=== PATIENT | female | born 1975 | race Caucasian/White ===

== ENCOUNTER 2023-08-22 16:27 | Inpatient (IN) | payer OTHER, SELFPAY ==
--- NOTE | ~2023-08-22 | CT_ITS ---
EXAMINATION: CT FACIAL BONES WITH CONTRAST CLINICAL INFORMATION: Possible sinusitis abscess tracking from dental source COMPARISON: None available. TECHNIQUE: Axial images through the facial bones following 85 mL Omnipaque [address] examination was performed using dose optimization techniques as appropriate, variously including the following: *Automated exposure control *Adjustment of mA and/or kV according to patient size (this includes techniques or standardized protocols for targeted exams where dose is matched to indication/reason for exam; i.e. extremities or head) *Use of iterative reconstruction technique DLP: 3 0 or mGy-cm FINDINGS: There is periapical lucency and disruption of the cortex of the left maxillary incisor. There is soft tissue swelling overlying the left side of the face. No Definite fluid collection/abscess not seen. There is periapical lucency and cortical disruption of the most posterior remaining right maxillary molar. There is cystic change in the floor of the left maxillary sinus adjacent to the roots of the most posterior left maxillary molar. This appears fluid-filled. There are inflammatory changes with membranous soft tissue thickening seen in the floor of the bilateral maxillary sinuses right greater than left. Visualized paranasal sinuses, mastoid air cells and middle ears are otherwise clear. Orbits are normal. Visualized intracranial structures are normal. There are no enlarged lymph nodes. Visualized salivary glands are normal. CT/CT facial bones w IV con IMPRESSION: Periapical lucency and cortical disruption surrounding the left maxillary incisor. There is adjacent soft tissue swelling of the left side of the face suggestive of cellulitis. No focal fluid collection/soft tissue abscess is seen. There is also periapical lucency and cortical disruption of the most posterior remaining right maxillary molar into the floor of the right maxillary sinus and fluid-filled cystic change adjacent to the root of the most posterior left maxillary molar. There is bilateral maxillary sinus disease, right greater than left, likely odontogenic in origin.
[2023-08-22 16:51] VITALS: BP 138/94; PULSE 109; RESP 18; TEMP 36.1; O2SAT 100; BMI 29.7
--- NOTE | 2023-08-22 16:53 | ED_ITS ---
HPI - General Adult General Chief complaint: Dental/Oral Stated complaint: ?Dental infection Time Seen by Provider: 08/22/23 18:02 History of Present Illness HPI narrative: 48 y/o F patient; PMH T2DM on Metformin, HTN, HLD; presents from home with concern for dental infection. The patient recently started with left upper incisor pain. She has an appointment scheduled for a root canal on Friday (08/25/2023) and has been on Augmentin. However she spoke with her dentist today who became concerned due to the increased swelling to her face and upper lip so he referred her to the emergency department. The patient denies fever or chills, difficulty speaking or swallowing. Related Data Allergies Allergy/AdvReac Type Severity Reaction Status Date / Time No Known Allergies Allergy Verified 08/22/23 16:53 Review of Systems 2 Review of Systems: Yes all other systems are reviewed and are negative [facility] Past Medical History Attestation statement: The following information was validated with the patient. Source: unable to obtain Social History Social History Alcohol intake: never Smoked in Last 30 Days: No Use of substances other than those prescribed or required for medical reasons: No Advance Directives: No Advance Directives Information Provided: No Do you have a plan to hurt others: No Plan Physical Exam ED Vital Signs: Vital Signs - 24 hr 08/22/23 16:51 08/22/23 18:18 08/22/23 19:30 Temperature 97.0 F 98.6 F 98.2 F Pulse Rate 109 H 104 H 102 H Respiratory Rate 18 16 16 Blood Pressure 138/94 H 130/80 137/83 Pulse Oximetry 100 97 98 Oxygen Delivery Method Room Air Room Air Room Air BMI result Body Mass Index 29.7 Patient is afebrile, tachycardic, mildly hypertensive Const General: cooperative HENTX Other: Swelling to upper gingiva overlying left incisor, swelling and tensing of the skin extending to left upper lip and left-sided face including infra-orbital. No significant overlying erythema or warmth. No tenderness sub-mandibular. No tenderness pre- or post-auricular. Head: Yes atraumatic Eyes General: appearance normal, both eyes and all related structures Neck Neck: Yes normal visual inspection and Yes full ROM Chest Chest palpation & inspection: normal inspection of the chest and normal palpation of entire chest wall Resp Effort & Inspection: normal respiratory effort and able to speak in complete sentences Auscultation: clear to auscultation bilaterally Cardio Rate: tachycardic Rhythm: regular rhythm Peripheral pulses: Peripheral pulses 2+ throughout GI Inspection: Yes normal to inspection Palpation (GI): Soft to palpation, not firm, nontender, no guarding and not rigid Auscultation: normal bowel sounds Course Course Course Narrative: RME performed by Shayy Queen PA-C. Patient is a 48 year old assigned female at presenting to the emergency department with left upper dental pain. Patient states that a few days ago she was told she needs a root canal of a tooth and while waiting to do that, her tooth became much more painful. Patient states that 2 days ago, she was given augmentin for a possible dental infection however, her dentist today recommended she come to the ER because she now has left lower eye swelling. Detailed physical exam and review of systems are deferred to the community facilitator. Labs and imaging ordered. Patient placed back in the waiting room pending room availability and results. Reevaluation(s) Reevaluation #1: Reviewed triage orders. Labs notable for multiple electrolyte abnormalities. No leukocytosis. Anemia with Hgb 8.3. ESR 42. CRP 13.94. Potassium 2.9, repleted with IV. Magnesium 1.2, repleted with IV. LA 4.3. Mild transaminitis. Providing Unasyn and IVF 1L pending CT imaging result. Reevaluation #2: CT with evidence of periapical lucency and cortical disruption surrounding the left maxillary incisor with adjacent soft tissue swelling of the left side of the face suggesting cellulitis without focal fluid collection/soft tissue abscess seen. Plan: Admit to hospitalist for cellulitis requiring IV antibiotics Condition: Stable Medications Administered Generic Name Dose Route Start Last Admin Trade Name Freq PRN Reason Stop Dose Admin Potassium Chloride 10 meq in 100 mls @ 100 mls/hr 08/22/23 19:30 08/22/23 19:42 Potassium Chloride/H20 IV 08/22/23 22:29 100 mls/hr Q1H TABITHA Administration Magnesium Sulfate 2 gm in 50 mls @ 25 mls/hr 08/22/23 19:18 08/22/23 19:31 Magnesium Sulfate/H2o IV 08/22/23 21:17 25 mls/hr ONCE ONE Administration Discontinued Medications Generic Name Dose Route Start Last Admin Trade Name John PRN Reason Stop Dose Admin Ampicillin Sodium/Sulbactam 100 mls @ 200 mls/hr 08/22/23 18:19 08/22/23 19:02 Sodium 3 gm/ Sodium Chloride IV 08/22/23 18:48 Infused ONCE ONE Infusion Sodium Chloride 1,000 mls @ 999 mls/hr 08/22/23 19:30 08/22/23 19:37 Ns IV 08/22/23 20:30 999 mls/hr .Q1H1M TABITHA Administration Iohexol 100 ml 08/22/23 18:34 08/22/23 18:34 Iohexol 350 Mg/Ml 100 Ml Infus..Btl IV 08/22/23 18:35 85 ml ONCE ONE Administration Medical Decision Making Lab Data 08/22/23 17:07 08/22/23 17:07 Labs: Lab Results 08/22/23 08/22/23 08/22/23 Range/Units 17:06 17:07 19:36 WBC 8.1 (4.8-10.8) X10*3/uL RBC 4.32 (4.20-5.50) X10*6/uL Hgb 8.3 L (12.0-16.0) g/dl Hct 27.9 L (37.0-47.0) % MCV 64.6 L (80.0-98.0) fL MCH 19.2 L (27.0-33.0) pg MCHC 29.7 L (31.0-35.0) g/dl RDW 19.6 H (11.0-16.0) % Plt Count 402 H (160-400) X10*3/uL MPV 8.4 L (9.4-12.3) fL Immature Gran % (Auto) 0.6 H (0.0-0.4) % Neut % (Auto) 76.2 H (45-73) % Lymph % (Auto) 13.9 L (20-40) % [place] % (Auto) 7.8 (2-11) % Eos % (Auto) 1.0 (0-4) % Baso % (Auto) 0.5 (0-2) % Lymph # (Auto) 1.1 L (1.2-4.9) X10*3/uL [place] # (Auto) 0.6 (0.1-1.2) X10*3/uL Eos # (Auto) 0.1 (0.0-0.4) X10*3/uL Baso # (Auto) 0.0 (0.0-0.2) X10*3/uL Abs Immat Gran (auto) 0.05 H (0.00-0.03) X10*3/uL Absolute Neuts (auto) 6.1 (2.0-8.3) x10*3/uL Absolute Nucleated RBC 0.000 (0.0-0.012) X10*3/uL Nucleated RBC % (auto) 0.0 (0.0-0.2) /100WBC ESR 42 H (0-20) MM/HR Sodium 140 (135-145) mmol/L Potassium 2.9 L* (3.3-5.1) mmol/L Chloride 96 (96-108) mmol/L Carbon Dioxide 28 (22-29) mmol/L Anion Gap 19 (12-20) BUN 12 (9-16) mg/dL Creatinine 0.73 (0.5-1.4) mg/dL Estim Creat Clear Calc 99.0 Estimated GFR > 60 Random Glucose 206 H (60-115) mg/dL Lactic Acid 4.3 H* (0.5-2.0) mmol/L Lactic Acid F/U @ 2Hr 1.7 (0.5-2.0) mmol/L Calcium 8.5 (8.4-10.2) mg/dL Magnesium 1.2 L* (1.6-2.6) mg/dL Total Bilirubin 0.6 (0.0-1.0) mg/dL AST 90 H (5-31) U/L ALT 90 H (0-31) U/L Alkaline Phosphatase 76 (39-117) U/L C-Reactive Protein 13.94 H (< or = 0.50) mg/dL Total Protein 7.9 (6.5-8.0) g/dL Albumin 4.5 (3.5-5.0) g/dL Radiology Impression Discussion of test interpretation with radiology: I have reviewed the radiologist's reading. Radiologist Impression: EXAMINATION: CT FACIAL BONES WITH CONTRAST CLINICAL INFORMATION: Possible sinusitis abscess tracking from dental source COMPARISON: None available. TECHNIQUE: Axial images through the facial bones following 85 mL Omnipaque [address] examination was performed using dose optimization techniques as appropriate, variously including the following: *Automated exposure control *Adjustment of mA and/or kV according to patient size (this includes techniques or standardized protocols for targeted exams where dose is matched to indication/reason for exam; i.e. extremities or head) *Use of iterative reconstruction technique DLP: 3 0 or mGy-cm FINDINGS: There is periapical lucency and disruption of the cortex of the left maxillary incisor. There is soft tissue swelling overlying the left side of the face. No Definite fluid collection/abscess not seen. There is periapical lucency and cortical disruption of the most posterior remaining right maxillary molar. There is cystic change in the floor of the left maxillary sinus adjacent to the roots of the most posterior left maxillary molar. This appears fluid-filled. There are inflammatory changes with membranous soft tissue thickening seen in the floor of the bilateral maxillary sinuses right greater than left. Visualized paranasal sinuses, mastoid air cells and middle ears are otherwise clear. Orbits are normal. Visualized intracranial structures are normal. There are no enlarged lymph nodes. Visualized salivary glands are normal. CT/CT facial bones w IV con IMPRESSION: Periapical lucency and cortical disruption surrounding the left maxillary incisor. There is adjacent soft tissue swelling of the left side of the face suggestive of cellulitis. No focal fluid collection/soft tissue abscess is seen. There is also periapical lucency and cortical disruption of the most posterior remaining right maxillary molar into the floor of the right maxillary sinus and fluid-filled cystic change adjacent to the root of the most posterior left maxillary molar. There is bilateral maxillary sinus disease, right greater than left, likely odontogenic in origin. Discharge Plan Discharge Clinical Impression: Cellulitis of face, Dental infection Patient Disposition: Admitted As Inpatient Print Language: Polish
[2023-08-22 17:15] LABS: MANUAL DIFF FLAG NO
[2023-08-22 17:19] LABS: Basophils Percent Auto 0.5 % (0-2); Eosinophils Absolute Auto 0.1 X10*3/uL (0.0-0.4); Hematocrit 27.9 % (37.0-47.0); Hemoglobin 8.3 g/dl (12.0-16.0); Imm Gran Abs Auto 0.05 X10*3/uL (0.00-0.03); Imm Gran Pct Auto 0.6 % (0.0-0.4); Lymphocytes Absolute Auto 1.1 X10*3/uL (1.2-4.9); Lymphocytes Percent Auto 13.9 % (20-40); Mean Corpuscular HGB Conc 29.7 g/dl (31.0-35.0); Mean Corpuscular Hemoglobin 19.2 pg (27.0-33.0); Mean Platelet Volume 8.4 fL (9.4-12.3); Monocytes Absolute Auto 0.6 X10*3/uL (0.1-1.2); Monocytes Percent Auto 7.8 % (2-11); Neutrophils Absolute Auto 6.1 x10*3/uL (2.0-8.3); Neutrophils Percent Auto 76.2 % (45-73); Platelet Count 402 X10*3/uL (160-400); Red Blood Count 4.32 X10*6/uL (4.20-5.50); Red Cell Distribution Width 19.6 % (11.0-16.0); White Blood Count 8.1 X10*3/uL (4.8-10.8)
[2023-08-22 17:31] LABS: Mean Corpuscular Volume 64.6 fL (80.0-98.0)
[2023-08-22 17:40] LABS: Alanine Aminotransferase 90 U/L (0-31); Albumin Level 4.5 g/dL (3.5-5.0); Alkaline Phosphatase 76 U/L (39-117); Anion Gap 19 (12-20); Aspartate Amino Transferase 90 U/L (5-31); Bilirubin Total 0.6 mg/dL (0.0-1.0); Blood Urea Nitrogen 12 mg/dL (9-16); C Reactive Protein 13.94 mg/dL (< or = 0.50); Calcium 8.5 mg/dL (8.4-10.2); Carbon Dioxide 28 mmol/L (22-29); Chloride 96 mmol/L (96-108); Estimated Glomerular Filt Rate > 60; Glucose Random 206 mg/dL (60-115); Magnesium 1.2 mg/dL (1.6-2.6); Potassium 2.9 mmol/L (3.3-5.1); Sodium 140 mmol/L (135-145); Total Protein 7.9 g/dL (6.5-8.0)
[2023-08-22 17:41] LABS: Lactic Acid 4.3 mmol/L (0.5-2.0)
[2023-08-22 18:08] LABS: Erythrocyte Sedimentation Rate 42 MM/HR (0-20)
[2023-08-22 18:18] VITALS: BP 130/80; PULSE 104; RESP 16; TEMP 37; O2SAT 97
[2023-08-22] MEDS: Ampicillin Sodium/Sulbactam Na 3 GM in 0.9 % Sodium Chloride 100 ML IV (18:32)
[2023-08-22] MEDS: iohexoL 350 MG/ML 100 ML INFUS..BTL IV (18:34)
[2023-08-22 19:12] LABS: Reflex Lactate? Lactic Acid Added
[2023-08-22 19:30] VITALS: BP 137/83; PULSE 102; RESP 16; TEMP 36.8; O2SAT 98
[2023-08-22] MEDS: Magnesium Sulfate/H2O 2 GM/50 ML PIGGYBACK IV ×2 (19:31→21:27)
[2023-08-22] MEDS: 0.9 % Sodium Chloride 1,000 ML 999 ML IV ×2 (19:37→20:50)
[2023-08-22] MEDS: Potassium Chloride/H20 10 MEQ/100 ML PIGGYBACK 100 MEQ IV ×3 (19:42→22:01)
--- NOTE | 2023-08-22 19:50 | PC.NURSE ---
this rn assumed care of pt. pt resting in stretcher, no acute distress noted. pt medicated per mar at this time, placed on tele 96-99bpm. second IV access established, 20G right AC.
[2023-08-22 19:57] LABS: ~Lactic Acid-LAB USE ONLY 1.7 mmol/L (0.5-2.0)
[2023-08-22] MEDS: Acetaminophen 325 MG TABLET 650 MG PO (20:49)
[2023-08-22 20:50] VITALS: RESP 20
[2023-08-22] MEDS: HYDROmorphone HCl 0.5 MG/0.5 ML SYRINGE IVPUSH (20:50)
[2023-08-22 20:52] LABS: Lipase 49 U/L (8-78)
--- NOTE | 2023-08-22 20:56 | PC.NURSE ---
prt medicated per mar for 10/10 tooth pain, pt tolerated well.
--- NOTE | 2023-08-22 21:32 | PC.NURSE ---
at bedside discussing pt care.
[2023-08-22 21:51] VITALS: BP 131/76; PULSE 98; RESP 16; TEMP 36.7; O2SAT 97
--- NOTE | 2023-08-22 22:05 | PC.NURSE ---
delay in lactated ringers due to no compatibility with magnesium and potassium.
--- NOTE | 2023-08-22 22:24 | P.HPHOSP_ITS ---
History of Present Illness Date of Service: 08/22/23 Attending physician on admission: Johnny Fagan Chief Complaint: Facial swelling Jamila Marquez is a 40 years old woman with past medical history significant for essential hypertension, type 2 diabetes mellitus on metformin and hyperlipidemia presents to the emergency department complaining of left-sided facial swelling associated to tooth pain since Friday. She denied any associated fever. Denies headache, acute visual disturbances or dizziness. Denied any cardiopulmonary, gastrointestinal or genitourinary symptoms. She is scheduled for a root canal on Friday for this issue. She has been taking a course of Augmentin over the last several days and has noted minimal improvement of swelling. He lady, she was found to have tachycardia. There is no tachypnea, hypotension or fever. Oxygen saturation is normal on room air. Blood workup showed no leukocytosis. Blood workup was remarkable for hypokalemia, 2.9 and hypomagnesemia, 1.2. There are no other electrolyte imbalances. CO2 is normal. Glucose is 206. Lactic acid is 4.3. Transaminases are elevated. Bilirubin, lipase and alk-phos are normal. Facial CT with IV contrast showed periapical lucency and cortical disruption surrounding the left maxillary incisor suggesting cellulitis. It did not show of focal fluid collection/abscess. There is bilateral maxillary sinus disease likely odontogenic in origin. ED tx: Magnesium 2 g IV, acetaminophen 650 mg PO, NS bolus 2 L bolus, potassium chloride IV, Unasyn 3 g IV, Dilaudid 0.5 mg IV. Review of Systems 2 Review of Systems: All 12 systems were reviewed and normal except as noted in HPI. [facility] Social History Alcohol intake: never Smoked in Last 30 Days: No Use of substances other than those prescribed or required for medical reasons: No Advance Directives: No Advance Directives Information Provided: No Do you have a plan to hurt others: No Plan Meds Allergies Allergy/AdvReac Type Severity Reaction Status Date / Time No Known Allergies Allergy Verified 08/22/23 16:53 Active Medications: Current Medications Acetaminophen (Acetaminophen 325 Mg Tablet) 975 mg PO Q6H PRN PRN Reason: mild pain, fever or headache Amlodipine Besylate (Amlodipine Besylate 10 Mg Tablet) 10 mg PO DAILY TABITHA; Protocol Atorvastatin Calcium (Atorvastatin Calcium 80 Mg Tablet) 80 mg PO DAILY [facility] Glucose (Glucose Gel 15 Gm Gel..Gram.) 15 gm PO Q15M PRN; Protocol PRN Reason: per Hypoglycemia Standing Ord. Hydrochlorothiazide (Hydrochlorothiazide 25 Mg Tablet) 25 mg PO DAILY [facility]; Protocol Potassium Chloride (Potassium Chloride/H20) 10 meq in 100 mls @ 100 mls/hr IV Q1H TABITHA Stop: 08/22/23 22:29 Last Admin: 08/22/23 22:01 Dose: 100 mls/hr Lactated Ringer's (Lr) 1,000 mls @ 100 mls/hr IVCONT .Q10H [facility] Stop: 08/23/23 09:59 Ampicillin Sodium/Sulbactam (Sodium 1.5 gm/ Sodium Chloride) 100 mls @ 200 mls/hr IV Q6H [facility] Dextrose (D10) 250 mls @ 750 mls/hr IV Q15M PRN; Protocol PRN Reason: per Hypoglycemia Standing Ord. Insulin Human Lispro (Insulin Lispro 100 Unit/Ml 3 Ml Vial) 0 unit SUBCUT QIDACHS [facility]; Protocol Sertraline HCl (Sertraline Hcl 100 Mg Tablet) 100 mg PO DAILY [facility] Sodium Chloride (0.9 % Sodium Chloride Flush 3 Ml Syringe) 3 ml IVFLUSH QSHIFT [facility] Home Medications ?Medication ?Instructions ?Recorded ?Confirmed ?Last Taken ?Type albuterol sulfate 90 mcg/actuation 2 puff inhalation Q4H PRN wheezing 08/22/23 Unknown History aerosol inhaler amlodipine 10 mg tablet 10 mg PO DAILY 08/22/23 08/22/23 Unknown History amoxicillin 500 mg capsule 500 mg PO Q8H 08/22/23 08/22/23 Unknown History atorvastatin 80 mg tablet 80 mg PO DAILY 08/22/23 08/22/23 Unknown History cholecalciferol (vitamin D3) 50 50 mcg PO DAILY 08/22/23 08/22/23 Unknown History mcg (2,000 unit) tablet (Vitamin D3) hydrochlorothiazide 25 mg tablet 25 mg PO DAILY 08/22/23 Unknown History ipratropium 0.5 mg-albuterol 3 mg 3 ml inhalation Q6H PRN Shortness 08/22/23 08/22/23 08/21/23 History (2.5 mg base)/3 mL nebulization Of Breath Or Wheezing soln metformin 500 mg tablet,extended 1,000 mg PO BID 08/22/23 08/22/23 Unknown History release 24 hr omega 9-mju-[id number]-fish oil 60 mg-90 1 cap PO DAILY 08/22/23 08/22/23 Unknown History mg-500 mg capsule (Fish Oil) sertraline 100 mg tablet 100 mg PO DAILY 08/22/23 08/22/23 Unknown History Physical Exam 2 Vital Signs and Narrative: Vital Signs: Last Vital Signs Temp 98.1 F 08/22/23 21:51 Pulse 98 08/22/23 21:51 Resp 16 08/22/23 21:51 BP 131/76 08/22/23 21:51 Pulse Ox 97 08/22/23 21:51 O2 Del Method Room Air 08/22/23 21:51 BMI result Body Mass Index 29.7 Constitutional - Awake and Alert, No apparent distress. Afebrile HEENT: There is no periorbital edema. Extraocular movements are intact. Left cheek/upper lip swelling + tenderness. No erythema. No nasal discharges. Left upper teeth with a gross evidence of erythema or swelling however tenderness to palpation. Heart - RRR. No murmurs Lungs - Normal lung expansion, Normal respiratory effort, No respiratory distress, CTA bilaterally Abdomen - No tenderness Extremities - No calf tenderness bilaterally, no swelling Musculoskeletal - Normal inspection, normal ROM Skin - Warm/Dry Neurological - Alert & oriented x3. No focal weakness Psychological - Appropriate affect Results Labs 08/22/23 17:07 08/22/23 17:07 Labs: Laboratory Results - last 24 hr 08/22/23 08/22/23 08/22/23 17:06 17:07 19:36 MCV 64.6 L MCH 19.2 L MCHC 29.7 L RDW 19.6 H Plt Count 402 H MPV 8.4 L Immature Gran % (Auto) 0.6 H Neut % (Auto) 76.2 H Lymph % (Auto) 13.9 L [place] % (Auto) 7.8 Eos % (Auto) 1.0 Baso % (Auto) 0.5 Lymph # (Auto) 1.1 L [place] # (Auto) 0.6 Eos # (Auto) 0.1 Baso # (Auto) 0.0 Abs Immat Gran (auto) 0.05 H Absolute Neuts (auto) 6.1 Absolute Nucleated RBC 0.000 Nucleated RBC % (auto) 0.0 ESR 42 H Anion Gap 19 Estim Creat Clear Calc 99.0 Estimated GFR > 60 Random Glucose 206 H Lactic Acid 4.3 H* Lactic Acid F/U @ 2Hr 1.7 Calcium 8.5 Magnesium 1.2 L* Total Bilirubin 0.6 AST 90 H ALT 90 H Alkaline Phosphatase 76 C-Reactive Protein 13.94 H Total Protein 7.9 Albumin 4.5 Lipase 49 Imaging Radiologist's Impressions: Impressions Face CT 08/22/23 18:33 IMPRESSION: Periapical lucency and cortical disruption surrounding the left maxillary incisor. There is adjacent soft tissue swelling of the left side of the face suggestive of cellulitis. No focal fluid collection/soft tissue abscess is seen. There is also periapical lucency and cortical disruption of the most posterior remaining right maxillary molar into the floor of the right maxillary sinus and fluid-filled cystic change adjacent to the root of the most posterior left maxillary molar. There is bilateral maxillary sinus disease, right greater than left, likely odontogenic in origin. Assessment and Plan (1) Dental infection: Status: Acute (2) Cellulitis of face: Status: Acute Plan Jamila Marquez is a 40 years old woman admitted with: * Facial cellulitis with odontogenic infection. No SIRS criteria: Only tachycardia. Continue empiric IV antibiotic therapy with Unasyn. Pain control on anti-inflammatory therapy with NSAIDs. * Acute lactic acidosis, resolved. Likely secondary to metformin. Hold metformin. * Electrolyte imbalances: hypomagnesemia and hypokalemia. Likely secondary to hydrochlorothiazide. Hold hydrochlorothiazide. Continue to monitor electrolytes. * Essential hypertension. Continue amlodipine. Hydrochlorothiazide on hold due to hypokalemia and hypomagnesemia. * Hyperlipidemia. Continue statin. * Type 2 diabetes mellitus. Metformin on hold due to lactic acidosis + recent administration of IV contrast. Blood glucose monitoring before meals at bedtime. Blood glucose control with insulin sliding scale for now. Diabetic diet. Code status: Full DVT prophylaxis: Low risk. Early ambulation. Patient will need hospitalization for at least 2 midnights for facial cellulitis secondary to odontogenic infection treatment the setting of immunocompromised state (diabetes mellitus) and no significant improvement of symptoms with oral antibiotics. Quality Stroke Does the patient have a stroke diagnosis?: No VTE Prior VTE?: No VTE Risk Level:: Medical - low VTE Device Contraindication: Treatment Not Indicated VTE Drug Contraindication: Treatment Not Indicated
--- NOTE | 2023-08-22 22:35 | PHA.MEDREC ---
Pharmacy Consult ? Medication Reconciliation Pharmacy has completed the medication reconciliation with patient and at bedside, pt had list from [facility] and confirmed all meds and vitamin D. Provider added amoxicillin 500, and used source as patient although patient did not report this to me.
[2023-08-22 22:36] LABS: Glucose, Whole Blood 136 mg/dL (60-115)
[2023-08-22] MEDS: Lactated Ringers 1,000 ML 100 ML IVCONT (23:15)
[2023-08-22 23:21] LABS: Anion Gap 15 (12-20); Blood Urea Nitrogen 9 mg/dL (9-16); Calcium 7.1 mg/dL (8.4-10.2); Carbon Dioxide 25 mmol/L (22-29); Chloride 102 mmol/L (96-108); Estimated Glomerular Filt Rate > 60; Glucose Random 153 mg/dL (60-115); Magnesium 2.1 mg/dL (1.6-2.6); Potassium 2.7 mmol/L (3.3-5.1); Sodium 139 mmol/L (135-145)
[2023-08-22] MEDS: Potassium Chloride Packet 20 MEQ PACKET 40 MEQ PO (23:34)
[2023-08-23] VITALS (8 sets, daily range): BP systolic 125–168; BP diastolic 69–93; PULSE 74–110; RESP 15–20; TEMP 36.1–38.2; O2SAT 94–98; BMI 29.7
--- NOTE | 2023-08-23 00:28 | MHC.EDTECH ---
0000 ROUNDING DONE ,VITALS TAKEN ,PT WALK TO BATHROOM INDEPENDENTLY ,VOID AND BACK TO BED ,CALL PATRICK WITHIN PATIENT REACH .
[2023-08-23] MEDS: Ampicillin Sodium/Sulbactam Na 1.5 GM in 0.9 % Sodium Chloride 100 ML IV ×4 (00:39→19:40)
[2023-08-23] MEDS: oxyCODONE HCl Immed Release 5 MG TABLET PO ×4 (02:17→16:41)
[2023-08-23 05:06] LABS: MANUAL DIFF FLAG NO
[2023-08-23 05:07] LABS: Basophils Percent Auto 0.5 % (0-2); Eosinophils Absolute Auto 0.1 X10*3/uL (0.0-0.4); Eosinophils Percent Auto 1.7 % (0-4); Hematocrit 24.4 % (37.0-47.0); Hemoglobin 7.2 g/dl (12.0-16.0); Imm Gran Abs Auto 0.03 X10*3/uL (0.00-0.03); Imm Gran Pct Auto 0.5 % (0.0-0.4); Lymphocytes Absolute Auto 1.4 X10*3/uL (1.2-4.9); Lymphocytes Percent Auto 20.9 % (20-40); Mean Corpuscular HGB Conc 29.5 g/dl (31.0-35.0); Mean Corpuscular Hemoglobin 18.8 pg (27.0-33.0); Mean Platelet Volume 8.1 fL (9.4-12.3); Monocytes Absolute Auto 0.6 X10*3/uL (0.1-1.2); Monocytes Percent Auto 8.9 % (2-11); Neutrophils Absolute Auto 4.5 x10*3/uL (2.0-8.3); Neutrophils Percent Auto 67.5 % (45-73); Platelet Count 325 X10*3/uL (160-400); Red Blood Count 3.83 X10*6/uL (4.20-5.50); Red Cell Distribution Width 19.6 % (11.0-16.0); White Blood Count 6.6 X10*3/uL (4.8-10.8)
[2023-08-23 05:08] LABS: Mean Corpuscular Volume 63.7 fL (80.0-98.0)
[2023-08-23] MEDS: Acetaminophen 325 MG TABLET 975 MG PO ×2 (06:17→12:29)
--- NOTE | 2023-08-23 06:18 | PC.NURSE ---
pt noted to have slight high temp, pt medicated with Tylenol per jun.
[2023-08-23] MEDS: Insulin Lispro 100 UNIT/ML 3 ML VIAL SUBCUT ×4 (08:26→20:55)
[2023-08-23 08:28] LABS: Glucose, Whole Blood 166 mg/dL (60-115)
[2023-08-23 08:31] LABS: Estimated Average Glucose 174 mg/dL; Hemoglobin A1c % 7.7 % (<6.0)
[2023-08-23 08:33] LABS: Iron 26 mcg/dL (30-160); Percent Iron Saturation 8 % (15-50); Total Iron Binding Capacity 325 mcg/dL (228-428); Unsaturated Iron Binding 299 ug/dL
--- NOTE | 2023-08-23 09:03 | PC.NURSE ---
PT TRANSFERRED FROM MAIN ED TO OVERFLOW BED 6 VIA STRETCHER. RN TO RN REPORT RECEIVED.
--- NOTE | 2023-08-23 09:15 | PC.NURSE ---
PT IS A/O X 4 NO SOB/ROSSANA NOTED SPEAKS IN FULL SENTENCES. 3/10 FACIAL PAIN/SWELLING NOTED. PT AWARE OF PLAN OF CARE. WILL CONTINUE TO MONITOR.
[2023-08-23] MEDS: Cholecalciferol (Vitamin D3) 25 MCG TABLET 50 MCG PO (09:32)
[2023-08-23] MEDS: Atorvastatin Calcium 80 MG TABLET PO (09:32)
[2023-08-23] MEDS: amLODIPine Besylate 10 MG TABLET PO (09:32)
[2023-08-23] MEDS: Potassium Chloride Packet 20 MEQ PACKET 40 MEQ PO ×2 (09:33→20:55)
[2023-08-23] MEDS: Lactated Ringers 1,000 ML 100 ML IVCONT (09:51)
[2023-08-23] MEDS: Sertraline HCL 100 MG TABLET PO (09:51)
[2023-08-23 11:53] LABS: Glucose, Whole Blood 192 mg/dL (60-115)
--- NOTE | 2023-08-23 12:11 | HO.PM.IMPN ---
Subjective Subjective Date of Service: 08/23/23 Interval History: fever of 100.7 this AM facial pain and swelling somewhat improved has dental appt 08/27/23 Review of Systems Review of Systems: Yes all other systems are reviewed and are negative Physical Exam Vital Signs: Vital Signs: Last Vital Signs Temp 98.7 F 08/23/23 09:22 Pulse 92 08/23/23 09:22 Resp 17 08/23/23 09:22 BP 128/84 08/23/23 09:22 Pulse Ox 94 08/23/23 09:22 O2 Del Method Room Air 08/23/23 09:22 BMI result Body Mass Index 29.7 Gen: in no acute distress HEENT: sclera anicteric, EOMI, L maxillary swelling/induration without fluctuance Neck: supple Lungs: clear to auscultation bilaterally Heart: regular rate and rhythm, no murmurs Abd: soft, non-tender, non-distended Ext: no edema Skin: warm/well-perfused Neuro: alert and oriented x3, CN2-12 intact Psych: appropriate affect Objective Data Active Medications Acetaminophen (Acetaminophen 325 Mg Tablet) 975 mg PO Q6H PRN PRN Reason: mild pain, fever or headache Last Admin: 08/23/23 06:17 Dose: 975 mg Documented By: ALISE Albuterol Sulfate (Albuterol Sulfate 90 Mcg 8 Gm Inhaler) 2 puff INHALE Q4H PRN PRN Reason: wheezing Albuterol/Ipratropium (Albuterol/Iprat 2.5/0.5mg 3 Ml Ampul.Neb) 3 ml INHALE Q6H PRN PRN Reason: Shortness Of Breath Or Wheezing Amlodipine Besylate (Amlodipine Besylate 10 Mg Tablet) 10 mg PO DAILY [facility]; Protocol Last Admin: 08/23/23 09:32 Dose: 10 mg Documented By: JUANITA Atorvastatin Calcium (Atorvastatin Calcium 80 Mg Tablet) 80 mg PO DAILY [facility] Last Admin: 08/23/23 09:32 Dose: 80 mg Documented By: JUANITA Glucose (Glucose Gel 15 Gm Gel..Gram.) 15 gm PO Q15M PRN; Protocol PRN Reason: per Hypoglycemia Standing Ord. Ampicillin Sodium/Sulbactam (Sodium 1.5 gm/ Sodium Chloride) 100 mls @ 200 mls/hr IV Q6H [facility] Last Infusion: 08/23/23 11:27 Dose: Infused Documented By: JUANITA Dextrose (D10) 250 mls @ 750 mls/hr IV Q15M PRN; Protocol PRN Reason: per Hypoglycemia Standing Ord. Ibuprofen (Ibuprofen 400 Mg Tablet) 400 mg PO Q6H PRN PRN Reason: Pain, Moderate(Pain Scale 4-6) Insulin Human Lispro (Insulin Lispro 100 Unit/Ml 3 Ml Vial) 0 unit SUBCUT QIDACHS [facility]; Protocol Last Admin: 08/23/23 08:26 Dose: 1 unit Documented By: CANELO Oxycodone HCl (Oxycodone Hcl Immed Release 5 Mg Tablet) 5 mg PO Q3H PRN PRN Reason: Pain, Severe (Pain Scale 7-10) Last Admin: 08/23/23 05:48 Dose: 5 mg Documented By: ALISE Potassium Chloride (Potassium Chloride Packet 20 Meq Packet) 40 meq PO BID [facility] Stop: 08/23/23 21:01 Last Admin: 08/23/23 09:33 Dose: 40 meq Documented By: JUANITA Sertraline HCl (Sertraline Hcl 100 Mg Tablet) 100 mg PO DAILY [facility] Last Admin: 08/23/23 09:51 Dose: 100 mg Documented By: JUANITA Sodium Chloride (0.9 % Sodium Chloride Flush 3 Ml Syringe) 3 ml IVFLUSH QSHIFT [facility] Last Admin: 08/23/23 08:29 Dose: Not Given Documented By: CANELO Non-Admin Reason: IV Running Vitamin D (Cholecalciferol (Vitamin D3) 25 Mcg Tablet) 50 mcg PO DAILY [facility] Last Admin: 08/23/23 09:32 Dose: 50 mcg Documented By: JUANITA Labs 08/23/23 05:02 08/22/23 23:00 Labs: Laboratory Results - last 24 hr 08/22/23 08/22/23 08/22/23 17:06 17:07 19:36 MCV 64.6 L MCH 19.2 L MCHC 29.7 L RDW 19.6 H Plt Count 402 H MPV 8.4 L Immature Gran % (Auto) 0.6 H Neut % (Auto) 76.2 H Lymph % (Auto) 13.9 L [place] % (Auto) 7.8 Eos % (Auto) 1.0 Baso % (Auto) 0.5 Lymph # (Auto) 1.1 L [place] # (Auto) 0.6 Eos # (Auto) 0.1 Baso # (Auto) 0.0 Abs Immat Gran (auto) 0.05 H Absolute Neuts (auto) 6.1 Absolute Nucleated RBC 0.000 Nucleated RBC % (auto) 0.0 ESR 42 H Anion Gap 19 Estim Creat Clear Calc 99.0 Estimated GFR > 60 POC Glucose Random Glucose 206 H Estimat Average Glucose Hemoglobin A1c % Lactic Acid 4.3 H* Lactic Acid F/U @ 2Hr 1.7 Calcium 8.5 Magnesium 1.2 L* Iron TIBC % Saturation Unsat Iron Binding Total Bilirubin 0.6 AST 90 H ALT 90 H Alkaline Phosphatase 76 C-Reactive Protein 13.94 H Total Protein 7.9 Albumin 4.5 Lipase 49 08/22/23 08/22/23 08/23/23 22:32 23:00 05:02 MCV 63.7 L MCH 18.8 L MCHC 29.5 L RDW 19.6 H Plt Count 325 MPV 8.1 L Immature Gran % (Auto) 0.5 H Neut % (Auto) 67.5 Lymph % (Auto) 20.9 [place] % (Auto) 8.9 Eos % (Auto) 1.7 Baso % (Auto) 0.5 Lymph # (Auto) 1.4 [place] # (Auto) 0.6 Eos # (Auto) 0.1 Baso # (Auto) 0.0 Abs Immat Gran (auto) 0.03 Absolute Neuts (auto) 4.5 Absolute Nucleated RBC 0.000 Nucleated RBC % (auto) 0.0 ESR Anion Gap 15 Estim Creat Clear Calc 113.0 Estimated GFR > 60 POC Glucose 136 H Random Glucose 153 H Estimat Average Glucose 174 Hemoglobin A1c % 7.7 H Lactic Acid Lactic Acid F/U @ 2Hr Calcium 7.1 L D Magnesium 2.1 Iron 26 L TIBC 325 % Saturation 8 L Unsat Iron Binding 299 Total Bilirubin AST ALT Alkaline Phosphatase C-Reactive Protein Total Protein Albumin Lipase 08/23/23 08/23/23 08:24 11:48 MCV MCH MCHC RDW Plt Count MPV Immature Gran % (Auto) Neut % (Auto) Lymph % (Auto) [place] % (Auto) Eos % (Auto) Baso % (Auto) Lymph # (Auto) [place] # (Auto) Eos # (Auto) Baso # (Auto) Abs Immat Gran (auto) Absolute Neuts (auto) Absolute Nucleated RBC Nucleated RBC % (auto) ESR Anion Gap Estim Creat Clear Calc Estimated GFR POC Glucose 166 H 192 H Random Glucose Estimat Average Glucose Hemoglobin A1c % Lactic Acid Lactic Acid F/U @ 2Hr Calcium Magnesium Iron TIBC % Saturation Unsat Iron Binding Total Bilirubin AST ALT Alkaline Phosphatase C-Reactive Protein Total Protein Albumin Lipase Impressions Face CT 08/22/23 18:33 IMPRESSION: Periapical lucency and cortical disruption surrounding the left maxillary incisor. There is adjacent soft tissue swelling of the left side of the face suggestive of cellulitis. No focal fluid collection/soft tissue abscess is seen. There is also periapical lucency and cortical disruption of the most posterior remaining right maxillary molar into the floor of the right maxillary sinus and fluid-filled cystic change adjacent to the root of the most posterior left maxillary molar. There is bilateral maxillary sinus disease, right greater than left, likely odontogenic in origin. Assessment and Plan (1) Dental infection: Status: Acute (2) Cellulitis of face: Status: Acute Plan d2 40yo F with DM2, HLD, HTN presenting with facial cellulitis associated with odontogenic infection; no abscess to drain facial celulitis due to odontogenic infection - Continue ampicillin-sulbactam started . Eventually will go home on amox/clav and then see dentist 08/26/23 for source control.= hypoMg - repleted hypoK - replete; recheck level in AM; d/c HCTZ KARMA - replete PO when bacterial infection controlled lactic acidosis - due to MTF; resolved HTN - amlodipine; d/c'ed HCTZ HLD - statin DM2 - A1c 7.7. Eliseo-dose lispro VTE ppx - SCDs dispo - eventually home In my clinical judgment, the patient requires continued inpatient hospitalization for the following reasons: IV ABX Total time managing care of this patient today: 35 minutes. Quality Stroke Does the patient have a stroke diagnosis?: No VTE Prior VTE?: No VTE Risk Level:: Medical - low VTE Device Contraindication: Treatment Not Indicated VTE Drug Contraindication: Treatment Not Indicated
--- NOTE | 2023-08-23 14:58 | MHC.CM.PN ---
EMR REVIEWED, CM MET W/PT WHO REPORTS SHE LIVES W/, 16YO [employer] AND 7YO DTR, PT FULLY INDEP, NO DME/SERVICES, WORKS/DRIVES, GOAL FOR DC IS HOME SELF CARE AND PT WILL LIKELY DC TOMORROW 08/23. PT VERIFIES PCP ON FILE IS CORRECT AND HCP IS ROGELIO URBAN, COPY REQUESTED
[2023-08-23] MEDS: 0.9 % Sodium Chloride Flush 3 ML SYRINGE IVFLUSH ×2 (15:35→19:44)
[2023-08-23 16:48] LABS: Glucose, Whole Blood 181 mg/dL (60-115)
[2023-08-23] MEDS: Ibuprofen 400 MG TABLET PO (19:59)
[2023-08-23 20:21] LABS: Glucose, Whole Blood 234 mg/dL (60-115)
[2023-08-24] MEDS: Ampicillin Sodium/Sulbactam Na 1.5 GM in 0.9 % Sodium Chloride 100 ML IV ×4 (01:07→19:32)
[2023-08-24 03:09] VITALS: BP 137/84; PULSE 80; RESP 18; TEMP 36.5; O2SAT 98
[2023-08-24 05:51] LABS: Hematocrit 22.8 % (37.0-47.0); Mean Corpuscular HGB Conc 29.8 g/dl (31.0-35.0); Mean Corpuscular Volume 63.9 fL (80.0-98.0); Mean Platelet Volume 8.5 fL (9.4-12.3); Platelet Count 328 X10*3/uL (160-400); Red Blood Count 3.57 X10*6/uL (4.20-5.50); Red Cell Distribution Width 19.7 % (11.0-16.0)
[2023-08-24 05:55] LABS: Hemoglobin 6.8 g/dl (12.0-16.0)
[2023-08-24 06:16] LABS: Anion Gap 14 (12-20); Blood Urea Nitrogen 8 mg/dL (9-16); Carbon Dioxide 27 mmol/L (22-29); Chloride 103 mmol/L (96-108); Creatinine Clr Calc Pharmacy 116.6; Estimated Glomerular Filt Rate > 60; Glucose Random 159 mg/dL (60-115); Magnesium 1.6 mg/dL (1.6-2.6); Potassium 3.1 mmol/L (3.3-5.1); Sodium 141 mmol/L (135-145)
[2023-08-24 07:26] VITALS: BP 136/83; PULSE 90; RESP 17; TEMP 36.4; O2SAT 97
[2023-08-24] MEDS: oxyCODONE HCl Immed Release 5 MG TABLET PO ×2 (07:36→11:28)
[2023-08-24 07:38] LABS: Glucose, Whole Blood 177 mg/dL (60-115)
[2023-08-24] MEDS: Cholecalciferol (Vitamin D3) 25 MCG TABLET 50 MCG PO (08:21)
[2023-08-24] MEDS: amLODIPine Besylate 10 MG TABLET PO (08:21)
[2023-08-24] MEDS: Sertraline HCL 100 MG TABLET PO (08:21)
[2023-08-24] MEDS: Atorvastatin Calcium 80 MG TABLET PO (08:21)
[2023-08-24] MEDS: Potassium Chloride Packet 20 MEQ PACKET 40 MEQ PO ×2 (08:21→20:22)
[2023-08-24] MEDS: 0.9 % Sodium Chloride Flush 3 ML SYRINGE IVFLUSH ×3 (08:27→19:32)
[2023-08-24] MEDS: Insulin Lispro 100 UNIT/ML 3 ML VIAL SUBCUT ×4 (09:08→20:22)
[2023-08-24 09:25] LABS: Hematocrit 24.6 % (37.0-47.0); Hemoglobin 7.2 g/dl (12.0-16.0)
--- NOTE | 2023-08-24 09:57 | HO.PM.IMPN ---
Subjective Subjective Date of Service: 08/24/23 Interval History: facial swelling improving having some drainage from gum above affected tooth no fever denies dizziness/lightheadedness/exertional dyspnea Review of Systems Review of Systems: Yes all other systems are reviewed and are negative Physical Exam Vital Signs: Vital Signs: Last Vital Signs Temp 97.6 F 08/24/23 07:26 Pulse 90 08/24/23 07:26 Resp 17 08/24/23 07:26 BP 136/83 08/24/23 07:26 Pulse Ox 97 08/24/23 07:26 O2 Del Method Room Air 08/24/23 07:26 BMI result Body Mass Index 29.7 Gen: in no acute distress HEENT: sclera anicteric, EOMI, L maxillary swelling/induration without fluctuance, L maxillary tooth with spontaneous drainage from gum Neck: supple Lungs: clear to auscultation bilaterally Heart: regular rate and rhythm, no murmurs Abd: soft, non-tender, non-distended Ext: no edema Skin: warm/well-perfused Neuro: alert and oriented x3, CN2-12 intact Psych: appropriate affect Objective Data Active Medications Acetaminophen (Acetaminophen 325 Mg Tablet) 975 mg PO Q6H PRN PRN Reason: mild pain, fever or headache Last Admin: 08/23/23 12:29 Dose: 975 mg Documented By: WADE Albuterol Sulfate (Albuterol Sulfate 90 Mcg 8 Gm Inhaler) 2 puff INHALE Q4H PRN PRN Reason: wheezing Albuterol/Ipratropium (Albuterol/Iprat 2.5/0.5mg 3 Ml Ampul.Neb) 3 ml INHALE Q6H PRN PRN Reason: Shortness Of Breath Or Wheezing Amlodipine Besylate (Amlodipine Besylate 10 Mg Tablet) 10 mg PO DAILY [facility]; Protocol Last Admin: 08/24/23 08:21 Dose: 10 mg Documented By: INEZ Atorvastatin Calcium (Atorvastatin Calcium 80 Mg Tablet) 80 mg PO DAILY [facility] Last Admin: 08/24/23 08:21 Dose: 80 mg Documented By: INEZ Glucose (Glucose Gel 15 Gm Gel..Gram.) 15 gm PO Q15M PRN; Protocol PRN Reason: per Hypoglycemia Standing Ord. Ampicillin Sodium/Sulbactam (Sodium 1.5 gm/ Sodium Chloride) 100 mls @ 200 mls/hr IV Q6H [facility] Last Infusion: 08/24/23 07:03 Dose: Infused Documented By: INEZ Dextrose (D10) 250 mls @ 750 mls/hr IV Q15M PRN; Protocol PRN Reason: per Hypoglycemia Standing Ord. Ibuprofen (Ibuprofen 400 Mg Tablet) 400 mg PO Q6H PRN PRN Reason: Pain, Moderate(Pain Scale 4-6) Last Admin: 08/23/23 19:59 Dose: 400 mg Documented By: RONNY Insulin Human Lispro (Insulin Lispro 100 Unit/Ml 3 Ml Vial) 0 unit SUBCUT QIDACHS [facility]; Protocol Last Admin: 08/24/23 09:08 Dose: 2 unit Documented By: INEZ Oxycodone HCl (Oxycodone Hcl Immed Release 5 Mg Tablet) 5 mg PO Q3H PRN PRN Reason: Pain, Severe (Pain Scale 7-10) Last Admin: 08/24/23 07:36 Dose: 5 mg Documented By: INEZ Potassium Chloride (Potassium Chloride Packet 20 Meq Packet) 40 meq PO BID [facility] Stop: 08/24/23 21:01 Last Admin: 08/24/23 08:21 Dose: 40 meq Documented By: INEZ Sertraline HCl (Sertraline Hcl 100 Mg Tablet) 100 mg PO DAILY [facility] Last Admin: 08/24/23 08:21 Dose: 100 mg Documented By: INEZ Sodium Chloride (0.9 % Sodium Chloride Flush 3 Ml Syringe) 3 ml IVFLUSH QSHIFT [facility] Last Admin: 08/24/23 08:27 Dose: 3 ml Documented By: INEZ Vitamin D (Cholecalciferol (Vitamin D3) 25 Mcg Tablet) 50 mcg PO DAILY [facility] Last Admin: 08/24/23 08:21 Dose: 50 mcg Documented By: INEZ Labs 08/24/23 09:15 08/24/23 04:59 Labs: Laboratory Results - last 24 hr 08/23/23 08/23/23 08/23/23 11:48 16:44 20:16 MCV MCH MCHC RDW Plt Count MPV Absolute Nucleated RBC Nucleated RBC % (auto) Anion Gap Estim Creat Clear Calc Estimated GFR POC Glucose 192 H 181 H 234 H Random Glucose Calcium Magnesium Blood Type Antibody Screen 04/08/24/23 08/24/23 04:59 07:30 09:15 MCV 63.9 L MCH 19.0 L MCHC 29.8 L RDW 19.7 H Plt Count 328 MPV 8.5 L Absolute Nucleated RBC 0.000 Nucleated RBC % (auto) 0.0 Anion Gap 14 Estim Creat Clear Calc 116.6 Estimated GFR > 60 POC Glucose 177 H Random Glucose 159 H Calcium 8.0 L D Magnesium 1.6 Blood Type O Positive Antibody Screen NEGATIVE Microbiology Microbiology Results: Microbiology 08/22/23 17:39 Blood Culture - Preliminary Blood - Venous No growth after 24 hours. 08/22/23 17:07 Blood Culture - Preliminary Blood - Venous No growth after 24 hours. Assessment and Plan (1) Dental infection: Status: Acute (2) Cellulitis of face: Status: Acute Plan d3 40yo F with DM2, HLD, HTN presenting with facial cellulitis associated with odontogenic infection; no abscess to drain facial celulitis due to odontogenic infection - continue ampicillin-sulbactam started . Eventually will go home on amox/clav and then see dentist 08/26/23 for source control hypoMg - repleted hypoK - replete; recheck level in AM; d/c HCTZ KARMA - replete PO when bacterial infection controlled; T+S; transfuse if Hb <7 lactic acidosis - due to MTF; resolved HTN - amlodipine; d/c'ed HCTZ HLD - statin DM2 - A1c 7.7. Eliseo-dose lispro VTE ppx - SCDs dispo - eventually home In my clinical judgment, the patient requires continued inpatient hospitalization for the following reasons: IV ABX Total time managing care of this patient today: 35 minutes. Quality Stroke Does the patient have a stroke diagnosis?: No VTE Prior VTE?: No VTE Risk Level:: Medical - low VTE Device Contraindication: Treatment Not Indicated VTE Drug Contraindication: Treatment Not Indicated
[2023-08-24 11:30] LABS: Glucose, Whole Blood 195 mg/dL (60-115)
[2023-08-24 15:52] VITALS: BP 123/76; PULSE 93; RESP 17; TEMP 36.5; O2SAT 96
[2023-08-24 16:22] LABS: OBS Int Ctl Valid YES; OBS1 NEGATIVE (NEGATIVE)
[2023-08-24 16:29] LABS: Glucose, Whole Blood 191 mg/dL (60-115)
[2023-08-24 19:43] VITALS: BP 132/77; PULSE 83; RESP 20; TEMP 36.6; O2SAT 96
[2023-08-24 20:17] LABS: Glucose, Whole Blood 159 mg/dL (60-115)
[2023-08-24] MEDS: Ibuprofen 400 MG TABLET PO (20:21)
[2023-08-25] MEDS: Ampicillin Sodium/Sulbactam Na 1.5 GM in 0.9 % Sodium Chloride 100 ML IV ×2 (00:50→07:52)
[2023-08-25 03:41] VITALS: BP 130/81; PULSE 74; RESP 19; TEMP 36.3; O2SAT 95
[2023-08-25 06:18] LABS: Hematocrit 24.7 % (37.0-47.0); Hemoglobin 7.1 g/dl (12.0-16.0); Mean Corpuscular HGB Conc 28.7 g/dl (31.0-35.0); Mean Corpuscular Hemoglobin 18.9 pg (27.0-33.0); Mean Corpuscular Volume 65.9 fL (80.0-98.0); Mean Platelet Volume 8.6 fL (9.4-12.3); Platelet Count 317 X10*3/uL (160-400); Red Blood Count 3.75 X10*6/uL (4.20-5.50); Red Cell Distribution Width 19.9 % (11.0-16.0); White Blood Count 5.2 X10*3/uL (4.8-10.8)
[2023-08-25 06:23] LABS: Anion Gap 14 (12-20); Blood Urea Nitrogen 8 mg/dL (9-16); Calcium 8.4 mg/dL (8.4-10.2); Carbon Dioxide 25 mmol/L (22-29); Chloride 105 mmol/L (96-108); Creatinine Clr Calc Pharmacy 118.6; Estimated Glomerular Filt Rate > 60; Glucose Random 175 mg/dL (60-115); Magnesium 1.7 mg/dL (1.6-2.6); Potassium 3.3 mmol/L (3.3-5.1); Sodium 141 mmol/L (135-145)
[2023-08-25 06:51] VITALS: BP 134/83; PULSE 74; RESP 16; TEMP 36.6; O2SAT 95
[2023-08-25 06:59] LABS: Glucose, Whole Blood 177 mg/dL (60-115)
[2023-08-25] MEDS: Insulin Lispro 100 UNIT/ML 3 ML VIAL SUBCUT (07:51)
[2023-08-25 07:52] VITALS: BP 134/83
[2023-08-25] MEDS: amLODIPine Besylate 10 MG TABLET PO (07:52)
[2023-08-25] MEDS: Sertraline HCL 100 MG TABLET PO (07:52)
[2023-08-25] MEDS: Atorvastatin Calcium 80 MG TABLET PO (07:52)
[2023-08-25] MEDS: Cholecalciferol (Vitamin D3) 25 MCG TABLET 50 MCG PO (07:52)
[2023-08-25] MEDS: 0.9 % Sodium Chloride Flush 3 ML SYRINGE IVFLUSH (07:53)
[2023-08-25] MEDS: Ibuprofen 400 MG TABLET PO (08:41)
--- NOTE | 2023-08-25 10:47 | PM.DS ---
DS: Providers Provider Date of Service: 08/25/23 Date of admission: 08/22/23 21:51 Date of discharge: 08/25/23 Primary care physician: Elizabeth Clarke MD DS: Diagnosis Discharge Diagnosis (1) Dental infection: Status: Acute (2) Cellulitis of face: Status: Acute (3) Iron deficiency anemia: Status: Acute (4) Hypokalemia: Status: Acute (5) Hypomagnesemia: Status: Acute DS: Summary Hospital Course Hospital Course: From the history and physical by the admitting hospitalist, Johnny Reyes, 08/22/23: Jamila Marquez is a 40 years old woman with past medical history significant for essential hypertension, type 2 diabetes mellitus on metformin and hyperlipidemia presents to the emergency department complaining of left-sided facial swelling associated to tooth pain since Friday. She denied any associated fever. Denies headache, acute visual disturbances or dizziness. Denied any cardiopulmonary, gastrointestinal or genitourinary symptoms. She is scheduled for a root canal on Friday for this issue. She has been taking a course of Augmentin over the last several days and has noted minimal improvement of swelling. He lady, she was found to have tachycardia. There is no tachypnea, hypotension or fever. Oxygen saturation is normal on room air. Blood workup showed no leukocytosis. Blood workup was remarkable for hypokalemia, 2.9 and hypomagnesemia, 1.2. There are no other electrolyte imbalances. CO2 is normal. Glucose is 206. Lactic acid is 4.3. Transaminases are elevated. Bilirubin, lipase and alk-phos are normal. Facial CT with IV contrast showed periapical lucency and cortical disruption surrounding the left maxillary incisor suggesting cellulitis. It did not show of focal fluid collection/abscess. There is bilateral maxillary sinus disease likely odontogenic in origin. ED tx: Magnesium 2 g IV, acetaminophen 650 mg PO, NS bolus 2 L bolus, potassium chloride IV, Unasyn 3 g IV, Dilaudid 0.5 mg IV. 48yo F with DM2, HLD, HTN presenting with facial cellulitis associated with odontogenic infection; no abscess to drain. She was admitted to the medical-surgical unit and treated with ampicillin-sulbactam IV. Maxillary swelling improved and she started to have spontaneous drainage from the gum above the maxillary incisor. She was discharged home on 7 days of amoxicillin-clavulanate and has an appointment with her dentist 08/26/23 for definitive treatment of the tooth. As for low magnesium and low potassium, these electrolytes were repleted and HCTZ was discontinued; alternative antihypertensive could be considered as outpatient if needed. Due to lactic acidosis, metformin was also discontinued [she was not septic, so we did not think the lactic acidosis was due to sepsis]; re-challenge may be considered as outpatient. She was found to have profound iron deficiency anemia with guaiac-negative stool; iron-rich foods and oral iron supplementation was recommended along with repeat CBC/retic count in 1 month. Time Attestation Discharge Coordination Time (in mins): 35 Quality: Safe Use of Opioids Does Pt have an Active Cancer Diagnosis on the Problem List?: No Quality: Stroke Does the patient have a stroke diagnosis?: No Physical Exam Vital Signs: Vital Signs: Last Vital Signs Temp 98 F 08/25/23 06:51 Pulse 74 08/25/23 06:51 Resp 16 08/25/23 06:51 BP 134/83 08/25/23 07:52 Pulse Ox 95 08/25/23 06:51 O2 Del Method Room Air 08/25/23 06:51 BMI result Body Mass Index 29.7 Gen: in no acute distress HEENT: sclera anicteric, EOMI, L maxillary swelling/induration resolved, L maxillary tooth with spontaneous drainage from gum Neck: supple Lungs: clear to auscultation bilaterally Heart: regular rate and rhythm, no murmurs Abd: soft, non-tender, non-distended Ext: no edema Skin: warm/well-perfused Neuro: alert and oriented x3, CN2-12 intact Psych: appropriate affect DS: Data Data Completed and Pending Completed studies during hospitalization [Text1]: Laboratory Results WBC 5.2 X10*3/uL (4.8-10.8) 08/25/23 05:37 RBC 3.75 X10*6/uL (4.20-5.50) L 08/25/23 05:37 Hgb 7.1 g/dl (12.0-16.0) L 08/25/23 05:37 Hct 24.7 % (37.0-47.0) L 08/25/23 05:37 MCV 65.9 fL (80.0-98.0) L 08/25/23 05:37 MCH 18.9 pg (27.0-33.0) L 08/25/23 05:37 MCHC 28.7 g/dl (31.0-35.0) L 08/25/23 05:37 RDW 19.9 % (11.0-16.0) H 08/25/23 05:37 Plt Count 317 X10*3/uL (160-400) 08/25/23 05:37 MPV 8.6 fL (9.4-12.3) L 08/25/23 05:37 Immature Gran % (Auto) 0.5 % (0.0-0.4) H 08/23/23 05:02 Neut % (Auto) 67.5 % (45-73) 08/23/23 05:02 Lymph % (Auto) 20.9 % (20-40) 08/23/23 05:02 [place] % (Auto) 8.9 % (2-11) 08/23/23 05:02 Eos % (Auto) 1.7 % (0-4) 08/23/23 05:02 Baso % (Auto) 0.5 % (0-2) 08/23/23 05:02 Lymph # (Auto) 1.4 X10*3/uL (1.2-4.9) 08/23/23 05:02 [place] # (Auto) 0.6 X10*3/uL (0.1-1.2) 08/23/23 05:02 Eos # (Auto) 0.1 X10*3/uL (0.0-0.4) 08/23/23 05:02 Baso # (Auto) 0.0 X10*3/uL (0.0-0.2) 08/23/23 05:02 Abs Immat Gran (auto) 0.03 X10*3/uL (0.00-0.03) 08/23/23 05:02 Absolute Neuts (auto) 4.5 x10*3/uL (2.0-8.3) 08/23/23 05:02 Absolute Nucleated RBC 0.000 X10*3/uL (0.0-0.012) 08/25/23 05:37 Nucleated RBC % (auto) 0.0 /100WBC (0.0-0.2) 08/25/23 05:37 Smear Path Review SEE NOTE 08/22/23 17:07 ESR 42 MM/HR (0-20) H 08/22/23 17:07 Sodium 141 mmol/L (135-145) 08/25/23 05:37 Potassium 3.3 mmol/L (3.3-5.1) 08/25/23 05:37 Chloride 105 mmol/L (96-108) 08/25/23 05:37 Carbon Dioxide 25 mmol/L (22-29) 08/25/23 05:37 Anion Gap 14 (12-20) 08/25/23 05:37 BUN 8 mg/dL (9-16) L 08/25/23 05:37 Creatinine 0.61 mg/dL (0.5-1.4) 08/25/23 05:37 Estim Creat Clear Calc 118.6 08/25/23 05:37 Estimated GFR > 60 08/25/23 05:37 POC Glucose 165 mg/dL (60-115) H 08/25/23 11:25 Random Glucose 175 mg/dL (60-115) H 08/25/23 05:37 Estimat Average Glucose 174 mg/dL 08/23/23 05:02 Hemoglobin A1c % 7.7 % (<6.0) H 08/23/23 05:02 Lactic Acid 4.3 mmol/L (0.5-2.0) H* 08/22/23 17:06 Lactic Acid F/U @ 2Hr 1.7 mmol/L (0.5-2.0) 08/22/23 19:36 Calcium 8.4 mg/dL (8.4-10.2) 08/25/23 05:37 Magnesium 1.7 mg/dL (1.6-2.6) 08/25/23 05:37 Iron 26 mcg/dL (30-160) L 08/22/23 23:00 TIBC 325 mcg/dL (228-428) 08/22/23 23:00 % Saturation 8 % (15-50) L 08/22/23 23:00 Unsat Iron Binding 299 ug/dL 08/22/23 23:00 Total Bilirubin 0.3 mg/dL (0.0-1.0) 08/25/23 05:37 Direct Bilirubin 0.2 mg/dL (0.0-0.5) 08/25/23 05:37 AST 29 U/L (5-31) 08/25/23 05:37 ALT 50 U/L (0-31) H 08/25/23 05:37 Alkaline Phosphatase 63 U/L (39-117) 08/25/23 05:37 C-Reactive Protein 4.55 mg/dL (< or = 0.50) H 08/25/23 05:37 Total Protein 6.5 g/dL (6.5-8.0) 08/25/23 05:37 Albumin 3.6 g/dL (3.5-5.0) 08/25/23 05:37 Lipase 49 U/L (8-78) 08/22/23 17:07 Stool Occult Blood NEGATIVE (NEGATIVE) 08/24/23 15:50 Blood Type O Positive 08/24/23 09:15 Antibody Screen NEGATIVE 08/24/23 09:[address] 08/22/23 18:33 IMPRESSION: Periapical lucency and cortical disruption surrounding the left maxillary incisor. There is adjacent soft tissue swelling of the left side of the face suggestive of cellulitis. No focal fluid collection/soft tissue abscess is seen. There is also periapical lucency and cortical disruption of the most posterior remaining right maxillary molar into the floor of the right maxillary sinus and fluid-filled cystic change adjacent to the root of the most posterior left maxillary molar. There is bilateral maxillary sinus disease, right greater than left, likely odontogenic in origin. Discharge Plan Discharge Anticipated Discharge Date/Time: 08/25/23 10:41 Patient Disposition: Home, Self-Care Discharge Diagnosis: facial cellulitis, odontogenic infection hypokalemia, hypomagnesemia lactic acidosis iron deficiency anemia Referrals: Elizabeth Clarke MD [Primary Care Provider] - 1 Week Discharge Medications: New ferrous sulfate 324 mg (65 mg iron) tablet,delayed release (DR/EC) 324 mg PO DAILY Qty: 30 0RF amoxicillin-pot clavulanate 875-125 mg tablet 1 tab PO BID Qty: 14 0RF Continued atorvastatin 80 mg tablet 80 mg PO BEDTIME sertraline 100 mg tablet 100 mg PO DAILY amlodipine 10 mg tablet 10 mg PO DAILY albuterol sulfate 90 mcg/actuation HFA aerosol inhaler 2 puff INHALATION Q4H PRN (Reason: wheezing) ipratropium-albuterol 0.5 mg-3 mg(2.5 mg base)/3 mL Solution For Nebulization 3 ml INHALATION Q6H PRN (Reason: Shortness Of Breath Or Wheezing) cholecalciferol (vitamin D3) [Vitamin D3] 50 mcg (2,000 unit) Tablet 50 mcg PO DAILY omega [id number] oil [Fish Oil] 60-90-500 mg Capsule 1 cap PO DAILY Discontinued hydrochlorothiazide 25 mg tablet 25 mg PO DAILY metformin 500 mg tablet extended release 24 hr 1,000 mg PO BID amoxicillin 500 mg capsule 500 mg PO Q8H Discharge Orders: Discharge Order (Routine); Ordered 08/25/23 Ordered By: Anahi Jewell Diet: Advance to usual diet Activity on Discharge: As tolerated Stand Alone Forms: Patient Portal Discharge page Print Language: Montenegrin Other Ambulatory Orders: Complete Blood Count Auto Diff (Routine) Timeframe: 1 Month Facility: [facility] - Location: Laboratory Ordered By: Anahi Jewell Reticulocyte Count (Routine) Timeframe: 1 Month Facility: [facility] - Location: Laboratory Ordered By: Anahi Jewell Care Plan Goals: cure of infection normal electrolytes lactic acidosis improvement of anemia Health Concerns: facial cellulitis, odontogenic infection - take amoxicillin-clavulanate 875-125 mg twice daily for 7 days - see your dentist as scheduled 08/27/23 for definitive treatment hypokalemia, hypomagnesemia - stop hydrochlorothiazide; consider alternative antihypertensive if needed lactic acidosis - stop metformin; consider re-challenge with metformin after infection resolves iron deficiency anemia - encourage iron-rich foods - take ferrous sulfate 324 mg once daily on an empty stomach with some vitamin C or juice - recheck CBC + reticulocyte count in 1 month Please follow up with your primary care doctor within 1 week. Return to the hospital if you experience recurrent or worsening symptoms. Plan of Treatment: as above Assessment: See Discharge Summary. Discharge Date/Time: 08/25/23 12:59
--- NOTE | 2023-08-25 11:04 | MHC.CM.PN ---
pt dcd home self care
[2023-08-25 11:29] LABS: Glucose, Whole Blood 165 mg/dL (60-115)
[2023-08-25 11:37] LABS: Alanine Aminotransferase 50 U/L (0-31); Albumin Level 3.6 g/dL (3.5-5.0); Alkaline Phosphatase 63 U/L (39-117); Aspartate Amino Transferase 29 U/L (5-31); Bilirubin Direct 0.2 mg/dL (0.0-0.5); Bilirubin Total 0.3 mg/dL (0.0-1.0); C Reactive Protein 4.55 mg/dL (< or = 0.50); Total Protein 6.5 g/dL (6.5-8.0)
== END 2023-08-25 12:59 | disposition home or self-care (01) | DRG 158 ==
LOC: HO.ED 20:21 → HO.EDOVER 21:59 → HO.S3 08-23 14:04
PROVIDERS: Physician Assistant Medical; Admitting Provider Internal Medicine; Emergency Provider Emergency Medicine; PCP Family Medicine; Visit Provider Family Medicine
DX: K04.7 Periapical abscess without sinus (principal); E87.21 Acute metabolic acidosis; K12.2 Cellulitis and abscess of mouth; E87.6 Hypokalemia; D50.9 Iron deficiency anemia, unspecified; E83.42 Hypomagnesemia; E11.9 Type 2 diabetes mellitus without complications; E78.5 Hyperlipidemia, unspecified; Z79.84 Long term (current) use of oral hypoglycemic drugs; Z79.899 Other long term (current) drug therapy
CPT/HCPCS: 36415; 70487; 80048; 80053; 80076; 82272; 82947; 83036; 83540; 83605; 83690; 83735; 85014; 85018; 85025; 85027; 85652; 86140; 86850; 86900; 86901; 87040; 99285; J0295; J1170; J3475; J3480; J7120; Q9967

== ENCOUNTER → 2023-08-22 21:51 | Outpatient (BNV) | payer OTHER, SELFPAY | PROVIDERS: Admitting Provider Internal Medicine; Emergency Provider Emergency Medicine; PCP Family Medicine; Visit Provider Internal Medicine | DX: L03.211 Cellulitis of face (principal); K04.7 Periapical abscess without sinus; D50.9 Iron deficiency anemia, unspecified; E87.6 Hypokalemia; E83.42 Hypomagnesemia | CPT/HCPCS: 99223; 99232; 99239 ==

== ENCOUNTER 2024-01-02 15:20 | Outpatient (AMB) | payer OTHER, SELFPAY ==
[2024-01-02 15:22] VITALS: BP 159/83; PULSE 88; BMI 31.5
--- NOTE | 2024-01-02 15:22 | A.OFFVIS_ITS ---
Vital Signs 3 01/02/24 15:22 Height 5 ft 5 in Weight 189 lb 9.561 oz BMI 31.5 BP 159/83 H Blood Pressure Location Lt brachial Position Sitting Pulse 88 Intake Visit Reasons: Anemia/ Colonoscopy Screening Intake Note: Jamila presents as a new patient for colonoscopy screening and anemia. CC: Patient reports GERD for about 8 years since she had her twins. She takes Omeprazole PRN. Fluctuates between constipation and diarrhea mostly diarrhea now since she was placed on Metformin. Denies having other GI concerns. Rehabilitation Program Coordinator Required: No Accompanied by: Spouse Allergies HELADIO Inhibitors Allergy (Intermediate, Verified 01/02/24 15:40) Swelling anything that ends in pril Allergy (Intermediate, Uncoded 01/02/24 15:31) Swelling HPI HPI Anemia/ Colonoscopy Screening: Details: 48-year-old female here for initial evaluation of anemia and for colonoscopy screening. She is referred by [facility] practice in [place]. PMX Asthma - infection induced Obesity Diabetes High cholesterol Hypertension History of preeclampsia Depression with anxiety * SURGICAL HISTORY section x 2 Tubal ligation * ALLERGIES Benazepril - anaphylaxis * LABS SUPPLIED BY PCP: 07/2023 CBC shows hemoglobin and hematocrit of 7.1/25 microcytic hypochromic with normal platelets of [id number], normal renal panel, hepatic panel shows AST/ALT of 29/50 with a normal bilirubin and alk-phos of 63, CRP is elevated at 4.55, lipase is normal, TODAY'S VISIT This is her first colonoscopy. She denies any bowel or upper GI problems. There are no prior problems with anesthesia or sedation. She only has asthma that is infection induced and she denies any cardiac problems. NO ID problems. There is no known FHX or crc or polyps. [facility] Medical History History of pre-eclampsia Iron deficiency anemia Surgical History History of tubal ligation History of section Family History Paternal Aunt Brain cancer Maternal Aunt Cancer Social History Housing: House Alcohol intake: never Patient Tobacco Use Status: Never used Tobacco service: No Review of Systems Const Denies fatigue, Denies fever(s), Denies night sweats, Denies poor appetite and Denies weight loss ENT Reports Normal hearing present, Denies dysphagia, Denies odynophagia, Denies throat swelling and Denies tongue swelling Card Reports no additional complaints Resp Reports no additional complaints GI Details: Denies abdominal pain, Denies melena, Denies bloating, Denies hematochezia, Denies constipation, Denies GI cramping, Denies dysphagia, Denies excessive flatus, Denies early satiety, Denies heartburn, Denies diarrhea, Denies nausea, Denies odynophagia, Denies vomiting and Denies hematemesis Skin/Breast Denies pruritus, Denies lesions, Denies rash and Denies jaundice Neuro Reports Normal hearing present and Denies Abnormal speech present Endo Denies fatigue Aller/Immun Denies throat swelling and Denies tongue swelling Physical Exam Vital Signs: Last Vital Signs Pulse 88 01/02/24 15:22 BP 159/83 H 01/02/24 15:22 BMI result Body Mass Index 31.5 Const General: cooperative, no acute distress, well developed and well groomed Nutritional Appearance: well nourished and overweight Orientation/consciousness: oriented to person, oriented to place and oriented to time Limitations: No language barrier HEENT Head: Yes normocephalic and Yes atraumatic Eyes General: appearance normal, both eyes and all related structures Pupils: Equal, round and reactive pupils present Neck Neck: Yes normal visual inspection and Yes no lymphadenopathy Thyroid: Thyroid normal Resp Effort & Inspection: normal respiratory effort and able to speak in complete sentences Auscultation: clear to auscultation bilaterally Cardio Rate: regular rate Rhythm: regular rhythm Heart sounds: Normal, physiologic split S2 sound present Peripheral pulses: radial pulses present and posterior tibial pulses present GI Inspection: No distended, No Abdominal panniculus present and Yes obesity Palpation (GI): Soft to palpation, nontender, no guarding, not rigid and No hepatosplenomegaly present Percussion: Yes normal to percussion Auscultation: normal bowel sounds Rectal Exam - Female: deferred Abdomen image: 2 1. surgical scars Skin General skin exam: no rashes or lesions noted, turgor normal, skin not dry, no jaundice, No spider nevi and no striae Rashes: no rashes Nails: normal Neuro General: oriented to person, oriented to place and oriented to time Cranial nerves: Yes Equal, round and reactive pupils present and Yes Normal hearing present Speech: No Abnormal speech present Extrem General: Yes normal to inspection, No clubbing, No cyanosis and No edema Psych Appearance: grossly normal and well kempt Mental Status: mental status grossly normal Speech and movement: Normal speech and movement present Affect: normal affect Attitude: cooperative Thought process: Normal thought process present and not confabulating Thought content: Normal thought content present Insight: Fair insight present (Psych) Judgement: Fair judgement present (Psych) Assessment & Plan Assessment & Plan (1) Pre-op examination: Code(s): Z01.818 - Encounter for other preprocedural examination Category: Medical Plan She is here today with a male family member who is supportive This is her first colonoscopy. She denies any bowel or upper GI problems. There are no prior problems with anesthesia or sedation. She only has asthma that is infection induced and she denies any cardiac problems. NO ID problems. There is no known FHX or crc or polyps. Orders: Orders 2 EGD/[place] Combo - GI Use Only Today Z01.818 - Encounter for other preprocedural examination Medications: New 2 peg 3350-electrolytes 236-22.74-6.74 -5.86 gram (Golytely) until fecal effluent is clear; do not exceed a total volume of 2,000 mL 240 mL PO Q10M 4,000 mL 0RF 1 day Z12.11 - Encounter for screening for malignant neoplasm of colon bisacodyl (Dulcolax (bisacodyl)) 10 mg (2 x 5 mg) PO BEDTIME 4 tabs 0RF 2 days Coding Level of Care Code New Pt Level 3 (64094) Diagnoses Pre-op examination Z01.818
== END 2024-01-02 16:00 | disposition home or self-care (01) ==
PROVIDERS: PCP Family Medicine; Visit Provider Nurse Practitioner
DX: Z01.818 Encounter for other preprocedural examination (principal); Z12.11 Encounter for screening for malignant neoplasm of colon
CPT/HCPCS: S0285

== ENCOUNTER → 2024-01-02 15:20 | Outpatient (BNVA) | payer OTHER, SELFPAY | PROVIDERS: PCP Family Medicine; Visit Provider Nurse Practitioner ==

== ENCOUNTER 2024-06-18 11:00 | Day surgery (SDC) | payer OTHER, SELFPAY ==
[2024-06-16 14:19] VITALS: BMI 31.4
[2024-06-18 11:11] VITALS: BMI 29.5
[2024-06-18 11:32] VITALS: BP 154/86; PULSE 91; RESP 16; TEMP 37.2; O2SAT 99
--- NOTE | 2024-06-18 11:37 | PC.NURSE ---
IV access attempted x2 by this RN unsuccessful. IV #20 left forearm placed by iNdhi Lambert RN, patient tolerated well.
[2024-06-18 11:39] LABS: Glucose, Whole Blood 148 mg/dL (60-115)
--- NOTE | 2024-06-18 11:51 | HO.ANESPROP2 ---
HPI - Anesthesia Eval Consult details Narrative: 48 yo female patient for EGD, Colonoscopy [facility] Active Problems Active Problems: All Active Problems Pre-op examination (Acute) Depression with anxiety (Acute) Hypertension (Acute) High cholesterol (Acute) Diabetes (Acute) Obesity (BMI 30.0-34.9) (Acute) Asthma (Acute)- only uses inhaler with bronchitis Hypomagnesemia (Acute) Hypokalemia (Acute) Dental infection (Acute) Cellulitis of face (Acute) Iron deficiency anemia (Acute) Some nausea with prep- took zofran this morning- no symptoms of nausea or vomiting now Denies REYES Past Medical History Medical History GERD (gastroesophageal reflux disease) History of pre-eclampsia Iron deficiency anemia Family History Family History Paternal Aunt Brain cancer Maternal Aunt Cancer Family history of problems with anesthesia: No Surgical History Surgical History History of tubal ligation History of section History of Problems with Anesthesia: No Social History Social History Housing: House Are you a primary manager medicare marketing to a significant other at home: No Do you presently have visiting nurse or other home services: No Alcohol intake: never Patient Tobacco Use Status: Never used Tobacco Second Hand Smoke Exposure: No service: No Meds Allergies Allergy/AdvReac Type Severity Reaction Status Date / Time HELADIO Inhibitors Allergy Intermediate Swelling Verified 01/02/24 15:40 anything that ends in pril Allergy Intermediate Swelling Uncoded 01/02/24 15:31 Home Medications ?Medication ?Instructions ?Recorded ?Confirmed ?Last Taken ?Type albuterol sulfate 90 mcg/actuation 2 puff inhalation Q4H PRN wheezing 08/22/23 06/18/24 08/21/23 History aerosol inhaler amlodipine 10 mg tablet 10 mg PO DAILY 08/22/23 06/18/24 06/17/24 History atorvastatin 80 mg tablet 80 mg PO BEDTIME 08/22/23 06/18/24 06/17/24 History cholecalciferol (vitamin D3) 50 50 mcg PO DAILY 08/22/23 06/18/24 06/17/24 History mcg (2,000 unit) tablet (Vitamin D3) ipratropium 0.5 mg-albuterol 3 mg 3 ml inhalation Q6H PRN Shortness 08/22/23 06/18/24 08/21/23 History (2.5 mg base)/3 mL nebulization Of Breath Or Wheezing soln sertraline 100 mg tablet 100 mg PO DAILY 08/22/23 06/18/24 06/17/24 History ascorbic acid 1,000 1 ea PO DAILY PRN immune health 01/02/24 06/18/24 06/17/24 History kf-xtvvdqztjynl-pyavznkv powder effervescent pack (Emergen-C) metformin 500 mg tablet,extended 1,000 mg PO BID 01/02/24 06/18/24 06/17/24 History release 24 hr omeprazole 20 mg capsule,delayed 20 mg PO DAILY PRN Acid Reflux 01/02/24 06/18/24 06/17/24 History release ondansetron HCl 4 mg tablet 4 mg PO DAILY PRN Nausea 06/18/24 06/18/24 06/18/24 History Exam Height,Weight and Vital Signs: Height 5 ft 5 in Weight 80.5 kg Last Vital Signs Temp 98.9 F 06/18/24 11:32 Pulse 91 06/18/24 11:32 Resp 16 06/18/24 11:32 BP 154/86 H 06/18/24 11:32 Pulse Ox 99 06/18/24 11:32 O2 Del Method Room Air 06/18/24 11:32 Pertinent Lab Results Pertinent Lab Results: Laboratory Testsm 06/18/24 11:36 POC Glucose 148 H Airway Mallampati Class: II TM Dist: >3cm Neck ROM: Full Loose/Missing/Broken Teeth: Yes (Broken tooth top back right. Missing some molars. Denies loose teeth) Heart: RRR+ murmur Lungs: CTAB Assessment and Plan Assessment Anesthesia Assessment: Anesthesia Plan Discussed and Chart Reviewed Final Anesthetic Review Family History of Problems with Anesthesia: No History of Problems with Anesthesia: No NPO: Yes ASA Class: II Final Preanesthetic Review: No Changes in Pt Med Stat, Meds/Allgs Chart Reviewed, Consent Obtained/Reviewed and Anes Risks/Benef Reviewed Patient Risk: Intermediate Procedure Risk: Low Assessment/Block/Sedation in SS: Assess/Block/Sedation-SS Anesthetic Plan Anesthetic Plan: TIVA Disposition: Standard PACU
--- NOTE | 2024-06-18 11:51 | MHC.SHP ---
Pre-Procedural Eval Section A - 24 Hr Update-Section A only Date of Service: 06/18/24 The patient is an INPATIENT: No The patient has been examined within 24 hours of the surgical procedure. The History & Physical has been completed within 30 days and I have reviewed it.: No Section B - Complete if H&P > 30 days Chief Complaint: Colon cancer screening, anemia Relevant Family History (Specify if Yes): No Relevant Social History: None Present Medications: see Short Stay Collaborative assessment Medical History: Significant History (Asthma - infection induced Obesity Diabetes High cholesterol Hypertension History of preeclampsia Depression with anxiety) History of Previous Operations: Relevant previous surgery/procedure and date(s) ( section x 2 Tubal ligation) Allergies: Allergies Allergy/AdvReac Type Severity Reaction Status Date / Time HELADIO Inhibitors Allergy Intermediate Swelling Verified 01/02/24 15:40 anything that ends in pril Allergy Intermediate Swelling Uncoded 01/02/24 15:31 Review of Systems Sugical H&P ROS: Negative: Constitution, Cardiovascular, Respiratory and Gastrointestinal Exam Surgical H&P Exam: Normal: Heart, Normal: Lungs, Normal: Extremities and Normal: Abdomen Plan Diagnosis/Plan: Unchanged I have reviewed the history and physical and performed a pertinent physical examination on my patient. No changes have occurred unless specified. Time Spent With Patient Time: Total time managing care of this patient today ____ minutes.
--- NOTE | 2024-06-18 13:45 | P.OPN-COLO_ITS ---
Colonoscopy Operative Note Operative Note Date of Service: 06/18/24 Narrative: FLEXIBLE TRANSORAL UPPER GASTROINTESTINAL ENDOSCOPY WITH BIOPSIES AND COLONOSCOPY TILL HEPATIC FLEXURE WITH BIOPSIES Pre-op diagnosis: Colon cancer screening (first colon), GERD, anemia Post-op diagnosis: GERD, hiatal hernia, multiple gastric polyps, Diverticulosis, hemorrhoids, incomplete colonoscopy Specimens and Sources: : A- SMALL BOWEL BX'S R/O CELIAC ?B- GASTRIC ANTRUM BXS R/O H-PYLORI ?C - GASTRIC POLYP ?D- EG JUNCTION BXS R/O BARRETTS ?E- RIGHT COLON BXS R/O MICROSCOPIC COLITIS ?F- LEFT COLON BXS R/O MICROSCOPIC COLITIS ? Endoscopist:? Charly Carbajal MD Anesthesia:?[facility] UPPER ENDOSCOPY Consent: Indications for the procedure and potential complications of bleeding, perforation, reaction to medications and missed diagnosis were discussed with the patient and informed consent was obtained. Instrument: Olympus GIF H 190 mid size upper endoscope Monitoring: Vital signs and clinical assessment, continuous EKG monitoring, Pulse oximetry, Carbon Dioxide monitoring and blood pressure monitoring were done throughout the procedure. Procedure: The patient was placed in the left lateral decubitis position and pre-procedure medications were administered and a bite block was placed. The endoscope was inserted into the mouth and advanced under direct vision to the third part of duodenum. A careful inspection was made as the upper endoscope was withdrawn including a retroflexed examination of the proximal stomach; Findings and interventions are described below. Findings: Larynx: Normal Esophagus: GE junction at 34 cms, hiatal hernia 34 to 36 cms. Mildly tortuous esophagus without stricture or ring. A 1 cms tongue of possible Gleason's - biopsied Stomach: Multiple 1-2 cms benign appearing polyps in the gastric body and fundus - one polyp was removed with a cold snare. Moderate diffuse gastric erythema - biopsies were obtained from the antrum. Grade 2 flap valve on retroflexed examination of the cardia. Duodenum: Normal bulb and descending duodenum Biopsies were obtained from descending duodenum to check for celiac sprue Intervention: Biopsies as noted above COLONOSCOPY PROCEDURE NOTE Instrument: Olympus PCF H 190 L pediatric colonoscope and CF H 190 L variable stiffness adult colonoscope Monitoring: Vital signs and clinical assessment, intermittent blood pressure monitoring, continuous EKG monitoring, Pulse oximetry and Carbon Dioxide monitoring were done throughout the procedure. Please see anesthesia flowsheet. Colon withdrawl time was 25 minutes. Procedure: The patient was placed in the left lateral decubitis position and pre-procedure medications were administered. After a digital rectal examination of the ano-rectum, the video pediatric colonoscope was inserted into the rectum and advanced through the colon to the hepatic flexure. It was not possible to advance further due to a long and redundant colon and lack of scope despite placing the patient in the supine position. The pediatric colonoscope was removed and an adult colonoscope was introduced into the rectum and advanced to the hepatic flexure. It was not possible to advanced the colonoscope to the cecum. The colonoscope was slowly withdrawn in a retrograde panoramic fashion and the colon mucosa was carefully examined including a retroflexed view of the rectum. Findings and interventions are described below. Procedure Difficulty: Pt was placed in the supine position and LLQ pressure was applied to intubate the ascending colon without success Findings: Terminal Ileum: Not evaluated Cecum: Not evaluated Ascending Colon: Not evaluated Transverse Colon: Normal Descending Colon: Normal Sigmoid Colon: Moderate diverticulosis Rectum: Normal Ano-rectum: Small internal hemorrhoids Colon preparation: Good after some irrigation. [place] Bowel Preparation Scale Right colon; 2 Transverse colon: 2 Left colon; 2 (0 = Unprepared colon segment with mucosa not seen due to solid stool that cannot be cleared. 1 = Portion of mucosa of the colon segment seen, but other areas of the colon segment not well seen due to staining, residual stool and/or opaque liquid. 2 = Minor amount of residual staining, small fragments of stool and/or opaque liquid, but mucosa of colon segment seen well. 3 = Entire mucosa of colon segment seen well with no residual staining, small fragments of stool or opaque liquid) Impression and Post Procedure Diagnosis: Endoscopy Findings: ESOPHAGUS: Hiatal hernia 34 to 36 cms. Mildly tortuous esophagus without stricture or ring. A 1 cms tongue of possible Gleason's - biopsied STOMACH: Diffuse gastritis and benign appearing gastric polyps DUODENUM: Normal - biopsies to check for celiac sprue Colonoscopy Findings: No polyps were detected Random biopsies were obtained from the right and left colon to check for microscopic colitis Moderate diverticulosis seen in the sigmoid colon Small hemorrhoids on retroflexed exam. Plan: Pt has a FU appointment on 07/02/24 with Nat Escoto NP. Pt will be scheduled for a CT colonography to evaluate the right colon Repeat Colonoscopy or CTC in 10 year if colon biopsies and CT colonography is normal. Above findings were reviewed with the patient and relevant handouts were given and the discharge area.
[2024-06-18 14:45] VITALS: BP 116/68; PULSE 94; RESP 17; TEMP 36.2; O2SAT 99
[2024-06-18 15:00] VITALS: BP 110/71; PULSE 86; RESP 17; O2SAT 97
== END 2024-06-18 15:28 | disposition home or self-care (01) ==
PROVIDERS: PCP Family Medicine; Visit Provider Internal Medicine Gastroenterology
PROC: (CPT 45380; principal; 2024-06-18 12:10)
DX: Z12.11 Encounter for screening for malignant neoplasm of colon (principal); K57.30 Diverticulosis of large intestine without perforation or abscess without bleeding; K64.8 Other hemorrhoids; D64.9 Anemia, unspecified; R10.11 Right upper quadrant pain; K29.50 Unspecified chronic gastritis without bleeding; K21.9 Gastro-esophageal reflux disease without esophagitis; K31.7 Polyp of stomach and duodenum; K44.9 Diaphragmatic hernia without obstruction or gangrene; I10 Essential (primary) hypertension; E78.00 Pure hypercholesterolemia, unspecified; J45.998 Other asthma; E11.9 Type 2 diabetes mellitus without complications; F41.9 Anxiety disorder, unspecified; Z79.84 Long term (current) use of oral hypoglycemic drugs; Z79.899 Other long term (current) drug therapy; Z88.8 Allergy status to other drugs, medicaments and biological substances
CPT/HCPCS: 45380; 43239; 82947; 88305; 88313; 88342; J1596; J2405; J2704; J2765